=== PATIENT | male | born 1945 | race Caucasian/White ===

== ENCOUNTER 2020-04-13 09:04 | Outpatient (CLI) | payer MEDICARE, BC ==
[2020-04-13 11:18] LABS: CREATININE 1.2 mg/dL (0.6-1.3); POTASSIUM 4.7 mmol/L (3.5-5.1)
[2020-04-13] MEDS ORDERED: IOHEXOL-350 100 ML VIAL IV ONE (12:18)
[2020-04-13] MEDS ORDERED: IV NS 0.9% 250 ML IV ONE (12:18)
== END 2020-04-13 23:59 | disposition home or self-care (01) ==
LOC: CT 09:04
PROVIDERS: ATTEND Internal Medicine
DX: I11.9 Hypertensive heart disease without heart failure (principal); I25.10 Atherosclerotic heart disease of native coronary artery without angina pectoris; I70.0 Atherosclerosis of aorta; I71.4 Abdominal aortic aneurysm, without rupture; J98.11 Atelectasis; R91.1 Solitary pulmonary nodule; N28.1 Cyst of kidney, acquired; M47.819 Spondylosis without myelopathy or radiculopathy, site unspecified
CPT/HCPCS: 36415; 71275; 74175; 80048; J7050; Q9967